=== PATIENT | female | born 1960 | race Caucasian/White ===

== ENCOUNTER 2016-09-11 15:45 | Inpatient (IN) | payer MEDICAID ==
[2016-09-11] VITALS (8 sets, daily range): BP systolic 109–133; RESP 20–24; TEMP 97.5; BMI 16.4
[~2016-09-11] VITALS: Ht 152.4 cm; Wt 38.0 kg
[2016-09-11] MEDS ORDERED: SODIUM CHLORIDE 0.9% 1,000 ML ONE (17:51)
[2016-09-11] MEDS ORDERED: PIPERACIL/TAZO 3.375GM/50ML 50 ML IV ONE (17:55)
[2016-09-11] MEDS ORDERED: SALINE FLUSH 10 ML FLUSH PRN (18:45)
[2016-09-11] MEDS ORDERED: ALU/MAG/SIM 30 ML UDC PO PRN (18:45)
[2016-09-11] MEDS ORDERED: BISACODYL EC 5 MG TAB PO PRN (18:45)
[2016-09-11] MEDS ORDERED: BISACODYL 10 MG SUPP RECTAL PRN (18:45)
[2016-09-11] MEDS: NEB-XOPENEX 0.63 MG/3 ML INH SCH ×2 (19:00→22:52)
[2016-09-11] MEDS: SALINE FLUSH 10 ML FLUSH SCH (21:42)
[2016-09-11] MEDS: ESCITALOPRAM 10 MG TAB PO SCH (21:51)
[2016-09-11] MEDS: CYPROHEPTADINE 4 MG TAB PO SCH (21:51)
[2016-09-11] MEDS: Carvedilol 3.125 MG TAB PO SCH (21:51)
[2016-09-11] MEDS: ALPRAZOLAM 0.25 MG TAB PO SCH (21:51)
[2016-09-12] VITALS (30 sets, daily range): BP systolic 94–137; RESP 15–31; TEMP 97.5–98.6; Ht 152.4 cm; Wt 38.0 kg
[2016-09-12] MEDS: METHYLPRED SOD SUCC 40 MG VIAL IV SCH ×2 (00:24→06:35)
[2016-09-12] MEDS: NEB-XOPENEX 0.63 MG/3 ML INH SCH ×2 (03:19→05:59)
[2016-09-12] MEDS: SODIUM CHLORIDE 0.9% FLUSH BAG 500 ML IV SCH (05:53)
[2016-09-12] MEDS: DUONEB INH SCH ×5 (07:00→23:25)
[2016-09-12] MEDS: SALINE FLUSH 10 ML FLUSH SCH ×2 (07:50→19:58)
[2016-09-12] MEDS: CYPROHEPTADINE 4 MG TAB PO SCH ×3 (09:16→20:01)
[2016-09-12] MEDS: Furosemide 20 MG/2 ML VIAL IV SCH ×2 (09:16→17:42)
[2016-09-12] MEDS: Carvedilol 3.125 MG TAB PO SCH ×2 (09:17→20:01)
[2016-09-12] MEDS: METHYLPRED SOD SUCC 125 MG/2 ML VIAL IV SCH ×3 (09:17→20:01)
[2016-09-12] MEDS: ASPIRIN EC 81 MG TAB PO SCH (09:17)
[2016-09-12] MEDS: ALPRAZOLAM 0.25 MG TAB PO SCH ×2 (09:23→20:01)
[2016-09-12] MEDS: LEVOFLOXACIN 500 MG/100 ML 100 ML IV SCH (09:30)
[2016-09-12] MEDS: ESCITALOPRAM 10 MG TAB PO SCH (20:01)
[2016-09-13] VITALS (26 sets, daily range): BP systolic 88–130; RESP 14–27; TEMP 97.7–98.9
[2016-09-13] MEDS: DUONEB INH SCH ×5 (02:26→16:56)
[2016-09-13] MEDS: SODIUM CHLORIDE 0.9% FLUSH BAG 500 ML IV SCH ×2 (05:48)
[2016-09-13] MEDS: SALINE FLUSH 10 ML FLUSH SCH ×2 (07:30→20:36)
[2016-09-13] MEDS: CYPROHEPTADINE 4 MG TAB PO SCH ×3 (08:09→20:36)
[2016-09-13] MEDS: Carvedilol 3.125 MG TAB PO SCH ×2 (08:09→20:36)
[2016-09-13] MEDS: ASPIRIN EC 81 MG TAB PO SCH (08:09)
[2016-09-13] MEDS: ALPRAZOLAM 0.25 MG TAB PO SCH ×2 (08:09→20:36)
[2016-09-13] MEDS: Furosemide 20 MG/2 ML VIAL IV SCH ×2 (08:10→17:59)
[2016-09-13] MEDS: METHYLPRED SOD SUCC 125 MG/2 ML VIAL IV SCH ×3 (08:10→20:36)
[2016-09-13] MEDS: LEVOFLOXACIN 500 MG/100 ML 100 ML IV SCH (08:56)
[2016-09-13] MEDS: ESCITALOPRAM 10 MG TAB PO SCH (20:36)
[2016-09-14] VITALS (16 sets, daily range): BP systolic 87–125; RESP 13–23; TEMP 97.4–98.9
[2016-09-14] MEDS: DUONEB INH SCH ×7 (00:20→23:21)
[2016-09-14] MEDS: SODIUM CHLORIDE 0.9% FLUSH BAG 500 ML IV SCH ×3 (05:46→19:21)
[2016-09-14] MEDS: METHYLPRED SOD SUCC 125 MG/2 ML VIAL IV SCH ×3 (09:54→20:24)
[2016-09-14] MEDS: LEVOFLOXACIN 500 MG/100 ML 100 ML IV SCH (09:54)
[2016-09-14] MEDS: Furosemide 20 MG/2 ML VIAL IV SCH ×2 (09:54→17:34)
[2016-09-14] MEDS: SALINE FLUSH 10 ML FLUSH SCH ×2 (09:54→20:24)
[2016-09-14] MEDS: ASPIRIN EC 81 MG TAB PO SCH (09:55)
[2016-09-14] MEDS: Carvedilol 3.125 MG TAB PO SCH ×2 (09:55→20:25)
[2016-09-14] MEDS: CYPROHEPTADINE 4 MG TAB PO SCH ×3 (09:55→20:24)
[2016-09-14] MEDS: ALPRAZOLAM 0.25 MG TAB PO SCH ×2 (09:57→20:25)
[2016-09-14] MEDS: ESCITALOPRAM 10 MG TAB PO SCH (20:24)
[2016-09-15] VITALS (9 sets, daily range): BP systolic 103–116; RESP 15–24; TEMP 97.6–98.5
[2016-09-15] MEDS: SODIUM CHLORIDE 0.9% FLUSH BAG 500 ML IV SCH (06:40)
[2016-09-15] MEDS: DUONEB INH SCH ×5 (07:36→23:23)
[2016-09-15] MEDS: LEVOFLOXACIN 500 MG/100 ML 100 ML IV SCH (07:52)
[2016-09-15] MEDS: SALINE FLUSH 10 ML FLUSH SCH ×2 (07:52→20:09)
[2016-09-15] MEDS: Furosemide 20 MG/2 ML VIAL IV SCH ×2 (07:53→17:25)
[2016-09-15] MEDS: CYPROHEPTADINE 4 MG TAB PO SCH ×3 (07:53→20:11)
[2016-09-15] MEDS: METHYLPRED SOD SUCC 125 MG/2 ML VIAL IV SCH ×3 (07:53→20:10)
[2016-09-15] MEDS: ASPIRIN EC 81 MG TAB PO SCH (07:53)
[2016-09-15] MEDS: Carvedilol 3.125 MG TAB PO SCH ×2 (07:53→20:10)
[2016-09-15] MEDS: ALPRAZOLAM 0.25 MG TAB PO SCH ×2 (07:53→20:11)
[2016-09-15] MEDS: ESCITALOPRAM 10 MG TAB PO SCH (20:11)
[2016-09-16] VITALS (7 sets, daily range): BP systolic 99–126; RESP 16–22; TEMP 98.1–98.5
[2016-09-16] MEDS: SODIUM CHLORIDE 0.9% FLUSH BAG 500 ML IV SCH ×2 (05:22)
[2016-09-16] MEDS: DUONEB INH SCH ×5 (08:13→23:32)
[2016-09-16] MEDS: ASPIRIN EC 81 MG TAB PO SCH (08:15)
[2016-09-16] MEDS: Carvedilol 3.125 MG TAB PO SCH ×2 (08:15→20:01)
[2016-09-16] MEDS: ALPRAZOLAM 0.25 MG TAB PO SCH ×2 (08:15→20:01)
[2016-09-16] MEDS: CYPROHEPTADINE 4 MG TAB PO SCH ×3 (08:15→20:01)
[2016-09-16] MEDS: METHYLPRED SOD SUCC 125 MG/2 ML VIAL IV SCH ×3 (08:18→20:01)
[2016-09-16] MEDS: Furosemide 20 MG/2 ML VIAL IV SCH ×2 (08:18→16:18)
[2016-09-16] MEDS: SALINE FLUSH 10 ML FLUSH SCH ×2 (08:20→20:01)
[2016-09-16] MEDS: LEVOFLOXACIN 500 MG/100 ML 100 ML IV SCH (08:21)
[2016-09-16] MEDS: ESCITALOPRAM 10 MG TAB PO SCH (20:00)
[2016-09-17] VITALS (10 sets, daily range): BP systolic 99–120; RESP 16–22; TEMP 97.3–97.8
[2016-09-17] MEDS: DUONEB INH SCH ×5 (05:03→23:28)
[2016-09-17] MEDS: SODIUM CHLORIDE 0.9% FLUSH BAG 500 ML IV SCH ×3 (06:00→19:29)
[2016-09-17] MEDS: Carvedilol 3.125 MG TAB PO SCH ×2 (08:15→20:14)
[2016-09-17] MEDS: Furosemide 20 MG/2 ML VIAL IV SCH (08:15)
[2016-09-17] MEDS: ALPRAZOLAM 0.25 MG TAB PO SCH ×2 (08:15→20:15)
[2016-09-17] MEDS: ASPIRIN EC 81 MG TAB PO SCH (08:15)
[2016-09-17] MEDS: CYPROHEPTADINE 4 MG TAB PO SCH ×3 (08:15→20:14)
[2016-09-17] MEDS: METHYLPRED SOD SUCC 125 MG/2 ML VIAL IV SCH (08:16)
[2016-09-17] MEDS: LEVOFLOXACIN 500 MG/100 ML 100 ML IV SCH (08:16)
[2016-09-17] MEDS: SALINE FLUSH 10 ML FLUSH SCH ×2 (08:17→20:15)
[2016-09-17] MEDS: Furosemide 20 MG TAB PO SCH (17:01)
[2016-09-17] MEDS ORDERED: MISSING DOSE XX ONE (20:00)
[2016-09-17] MEDS: ESCITALOPRAM 10 MG TAB PO SCH (20:14)
[2016-09-18 03:03] VITALS: BP_SYST 91; RESP 20; TEMP 98.5
[2016-09-18] MEDS: DUONEB INH SCH ×5 (06:37→22:12)
[2016-09-18] MEDS: SODIUM CHLORIDE 0.9% FLUSH BAG 500 ML IV SCH ×2 (06:51→19:50)
[2016-09-18 07:04] VITALS: BP_SYST 96; RESP 16; TEMP 97.8
[2016-09-18] MEDS: LEVOFLOXACIN 500 MG/100 ML 100 ML IV SCH (09:18)
[2016-09-18] MEDS: ALPRAZOLAM 0.25 MG TAB PO SCH ×2 (09:18→19:49)
[2016-09-18] MEDS: SALINE FLUSH 10 ML FLUSH SCH ×2 (09:19→19:49)
[2016-09-18] MEDS: PREDNISONE 20 MG TAB PO SCH (09:19)
[2016-09-18] MEDS: Carvedilol 3.125 MG TAB PO SCH ×2 (09:19→19:49)
[2016-09-18] MEDS: ASPIRIN EC 81 MG TAB PO SCH (09:19)
[2016-09-18] MEDS: Furosemide 20 MG TAB PO SCH (09:19)
[2016-09-18] MEDS: CYPROHEPTADINE 4 MG TAB PO SCH ×3 (09:20→19:49)
[2016-09-18 10:48] VITALS: BP_SYST 84; RESP 16; TEMP 98.1
[2016-09-18 14:55] VITALS: BP_SYST 110; RESP 16; TEMP 97.4
[2016-09-18] MEDS: MEGESTROL 800 MG/20 ML UDC PO SCH (16:07)
[2016-09-18 19:23] VITALS: BP_SYST 94; RESP 16; TEMP 98
[2016-09-18] MEDS: ESCITALOPRAM 10 MG TAB PO SCH (19:49)
[2016-09-18 23:14] VITALS: BP_SYST 91; RESP 16; TEMP 97.7
[2016-09-19] VITALS (8 sets, daily range): BP systolic 91–105; RESP 16–24; TEMP 97.5–98
[2016-09-19] MEDS: SODIUM CHLORIDE 0.9% FLUSH BAG 500 ML IV SCH (06:00)
[2016-09-19] MEDS: DUONEB INH SCH ×5 (07:27→23:04)
[2016-09-19] MEDS: Carvedilol 3.125 MG TAB PO SCH ×2 (08:17→20:08)
[2016-09-19] MEDS: ALPRAZOLAM 0.25 MG TAB PO SCH ×2 (08:17→20:08)
[2016-09-19] MEDS: ASPIRIN EC 81 MG TAB PO SCH (08:17)
[2016-09-19] MEDS: SALINE FLUSH 10 ML FLUSH SCH ×2 (08:17→20:08)
[2016-09-19] MEDS: PREDNISONE 20 MG TAB PO SCH (08:18)
[2016-09-19] MEDS: CYPROHEPTADINE 4 MG TAB PO SCH ×3 (08:18→20:08)
[2016-09-19] MEDS: MEGESTROL 800 MG/20 ML UDC PO SCH (08:18)
[2016-09-19] MEDS: ESCITALOPRAM 10 MG TAB PO SCH (20:08)
[2016-09-20] VITALS (11 sets, daily range): BP systolic 100–124; RESP 14–38; TEMP 98–98.4
[2016-09-20] MEDS: DUONEB INH PRN (04:12)
[2016-09-20] MEDS: SODIUM CHLORIDE 0.9% FLUSH BAG 500 ML IV SCH ×2 (05:49→05:54)
[2016-09-20] MEDS: DUONEB INH SCH ×5 (06:18→22:18)
[2016-09-20] MEDS: PREDNISONE 20 MG TAB PO SCH ×2 (08:48→10:43)
[2016-09-20] MEDS: SALINE FLUSH 10 ML FLUSH SCH ×2 (08:48→20:40)
[2016-09-20] MEDS: ALPRAZOLAM 0.25 MG TAB PO SCH ×3 (08:48→20:40)
[2016-09-20] MEDS: Carvedilol 3.125 MG TAB PO SCH ×3 (08:48→20:40)
[2016-09-20] MEDS: CYPROHEPTADINE 4 MG TAB PO SCH ×4 (08:48→20:40)
[2016-09-20] MEDS: ASPIRIN EC 81 MG TAB PO SCH ×2 (08:48→09:00)
[2016-09-20] MEDS: MEGESTROL 800 MG/20 ML UDC PO SCH ×2 (08:48→11:29)
[2016-09-20] MEDS ORDERED: MISSING DOSE XX ONE (10:40)
[2016-09-20] MEDS: MODAFINIL 100 MG TAB PO SCH (12:00)
[2016-09-20] MEDS: ESCITALOPRAM 10 MG TAB PO SCH (20:40)
[2016-09-21] VITALS (28 sets, daily range): BP systolic 83–122; RESP 11–24; TEMP 98–98.6
[2016-09-21] MEDS: DUONEB INH PRN (02:47)
[2016-09-21] MEDS: SODIUM CHLORIDE 0.9% FLUSH BAG 500 ML IV SCH ×2 (05:18→05:19)
[2016-09-21] MEDS: MODAFINIL 100 MG TAB PO SCH ×2 (06:13→12:24)
[2016-09-21] MEDS: DUONEB INH SCH ×5 (06:49→22:23)
[2016-09-21] MEDS: ASPIRIN EC 81 MG TAB PO SCH (08:38)
[2016-09-21] MEDS: Carvedilol 3.125 MG TAB PO SCH ×2 (08:38→21:00)
[2016-09-21] MEDS: PREDNISONE 20 MG TAB PO SCH (08:39)
[2016-09-21] MEDS: CYPROHEPTADINE 4 MG TAB PO SCH ×3 (08:39→21:00)
[2016-09-21] MEDS: MEGESTROL 800 MG/20 ML UDC PO SCH (08:40)
[2016-09-21] MEDS: SALINE FLUSH 10 ML FLUSH SCH ×2 (08:41→21:00)
[2016-09-21] MEDS: ALPRAZOLAM 0.25 MG TAB PO SCH ×2 (12:24→21:00)
[2016-09-21] MEDS: ESCITALOPRAM 10 MG TAB PO SCH (21:00)
[2016-09-22] VITALS (17 sets, daily range): BP systolic 75–107; RESP 13–22; TEMP 98.3–99.5
[2016-09-22] MEDS: DUONEB INH PRN (02:32)
[2016-09-22] MEDS: SODIUM CHLORIDE 0.9% FLUSH BAG 500 ML IV SCH ×4 (05:44→20:00)
[2016-09-22] MEDS: MODAFINIL 100 MG TAB PO SCH ×2 (06:08→13:05)
[2016-09-22] MEDS: DUONEB INH SCH ×5 (07:24→21:50)
[2016-09-22] MEDS: SALINE FLUSH 10 ML FLUSH SCH ×2 (08:42→20:00)
[2016-09-22] MEDS: ASPIRIN EC 81 MG TAB PO SCH (08:43)
[2016-09-22] MEDS: PREDNISONE 20 MG TAB PO SCH (08:43)
[2016-09-22] MEDS: MEGESTROL 800 MG/20 ML UDC PO SCH (08:43)
[2016-09-22] MEDS: Carvedilol 3.125 MG TAB PO SCH ×2 (08:43→21:00)
[2016-09-22] MEDS: CYPROHEPTADINE 4 MG TAB PO SCH ×3 (08:43→22:05)
[2016-09-22] MEDS: ALPRAZOLAM 0.25 MG TAB PO SCH ×2 (08:46→22:05)
[2016-09-22] MEDS: MAG HYDROX 30 ML UDC PO PRN (17:36)
[2016-09-22] MEDS: ESCITALOPRAM 10 MG TAB PO SCH (22:05)
[2016-09-23 02:48] VITALS: BP_SYST 104; RESP 16; TEMP 100.8
[2016-09-23] MEDS: MODAFINIL 100 MG TAB PO SCH ×2 (06:11→13:24)
[2016-09-23] MEDS: DUONEB INH SCH ×5 (06:59→22:59)
[2016-09-23 08:35] VITALS: BP_SYST 108; RESP 20; TEMP 98.7
[2016-09-23] MEDS: Carvedilol 3.125 MG TAB PO SCH ×2 (09:59→20:07)
[2016-09-23] MEDS: SALINE FLUSH 10 ML FLUSH SCH ×2 (09:59→20:04)
[2016-09-23] MEDS: MEGESTROL 800 MG/20 ML UDC PO SCH (10:00)
[2016-09-23] MEDS: ALPRAZOLAM 0.25 MG TAB PO SCH ×2 (10:00→20:07)
[2016-09-23] MEDS: PREDNISONE 20 MG TAB PO SCH (10:00)
[2016-09-23] MEDS: CYPROHEPTADINE 4 MG TAB PO SCH ×3 (10:00→20:07)
[2016-09-23] MEDS: ASPIRIN EC 81 MG TAB PO SCH (10:00)
[2016-09-23 17:32] VITALS: BP_SYST 95; RESP 20; TEMP 98.3
[2016-09-23] MEDS ORDERED: MISSING DOSE XX ONE (19:40)
[2016-09-23 19:50] VITALS: BP_SYST 115; RESP 16; TEMP 99.1
[2016-09-23] MEDS: ESCITALOPRAM 10 MG TAB PO SCH (20:07)
[2016-09-23] MEDS: MAG HYDROX 30 ML UDC PO PRN (20:07)
[2016-09-23 22:51] VITALS: BP_SYST 95; RESP 16; TEMP 99.2
[2016-09-23 23:00] VITALS: RESP 22
[2016-09-24] VITALS (7 sets, daily range): BP systolic 92–119; RESP 16–22; TEMP 97.6–98.9
[2016-09-24] MEDS: SODIUM CHLORIDE 0.9% FLUSH BAG 500 ML IV SCH ×2 (05:52→05:53)
[2016-09-24] MEDS: MODAFINIL 100 MG TAB PO SCH ×2 (06:05→11:03)
[2016-09-24] MEDS: DUONEB INH SCH ×4 (06:50→17:05)
[2016-09-24] MEDS: PREDNISONE 20 MG TAB PO SCH (08:09)
[2016-09-24] MEDS: MEGESTROL 800 MG/20 ML UDC PO SCH (08:09)
[2016-09-24] MEDS: CYPROHEPTADINE 4 MG TAB PO SCH ×2 (08:09→15:43)
[2016-09-24] MEDS: SALINE FLUSH 10 ML FLUSH SCH (08:09)
[2016-09-24] MEDS: Carvedilol 3.125 MG TAB PO SCH (08:09)
[2016-09-24] MEDS: ALPRAZOLAM 0.25 MG TAB PO SCH (08:09)
[2016-09-24] MEDS: ASPIRIN EC 81 MG TAB PO SCH (08:09)
== END 2016-09-24 18:01 | disposition home health service (06) | DRG 189 ==
LOC: ENRESERVDT → ENRESERVTM → ER 15:45 → ENPENDDIS 18:44 → EMR 18:44 → CCU 20:21 → 5THE 09-14 08:07 → ICU 09-20 09:56 → PCU 09-22 15:23
PROVIDERS: ADMIT Internal Medicine; ATTEND Internal Medicine
CPT/HCPCS: 36415; 36600; 71010; 80051; 80053; 81001; 82330; 82553; 82803; 82947; 83605; 83880; 84484; 85025; 86738; 87040; 87071; 87205; 93005; 94640; 94660; 94762; 94799; 96361; 96365; 96375

== ENCOUNTER 2016-10-07 09:05 | Inpatient (IN) | payer MEDICAID ==
[2016-10-07] VITALS (8 sets, daily range): BP systolic 89–114; RESP 20–30; TEMP 97.3–98.1; Ht 157.5 cm; Wt 35.0 kg
[~2016-10-07] VITALS: Ht 157.5 cm; Wt 35.0 kg
[2016-10-07] MEDS ORDERED: METHYLPRED SOD SUCC 125 MG/2 ML VIAL ONE (09:18)
[2016-10-07] MEDS ORDERED: LORAZEPAM 2 MG/ML VIAL ONE (09:19)
[2016-10-07] MEDS ORDERED: SODIUM CHLORIDE 0.9% 1,000 ML ONE (10:10)
[2016-10-07] MEDS ORDERED: PIPER/TAZO 3.375 GM PYXIS ONE (10:44)
[2016-10-07] MEDS ORDERED: SODIUM CHLORIDE 0.9% 250 ML IV ONE (10:45)
[2016-10-07] MEDS: LEVOFLOXACIN 500 MG/100 ML 100 ML IV SCH (13:16)
[2016-10-07] MEDS ORDERED: ACETAMINOPHEN 325 MG TAB PO PRN (13:20)
[2016-10-07] MEDS ORDERED: ONDANSETRON 4 MG VIAL IV PUSH PRN (13:20)
[2016-10-07] MEDS ORDERED: ALPRAZOLAM 0.25 MG TAB PO PRN (13:20)
[2016-10-07] MEDS ORDERED: KCL CR 10 MEQ CAP PO ONE (14:50)
[2016-10-07] MEDS ORDERED: DUONEB INH SCH (15:00)
[2016-10-07] MEDS ORDERED: MISSING DOSE XX ONE (15:25)
[2016-10-07] MEDS: METHYLPRED SOD SUCC 125 MG/2 ML VIAL IV SCH (15:37)
[2016-10-07] MEDS: DUONEB INH SCH ×3 (15:40→22:22)
[2016-10-07] MEDS: NEB-BUDESONIDE 0.5 MG INH SCH (19:50)
[2016-10-07] MEDS: NEB-BROVANA 15 MCG/2 ML INH SCH (19:50)
[2016-10-07] MEDS: clonazePAM 0.5 MG TAB PO SCH (20:27)
[2016-10-07] MEDS: Carvedilol 3.125 MG TAB PO SCH (20:27)
[2016-10-07] MEDS: MEGESTROL ACE 40 MG TAB PO SCH (20:27)
[2016-10-07] MEDS: CYPROHEPTADINE 4 MG TAB PO SCH (20:27)
[2016-10-08] VITALS (10 sets, daily range): BP systolic 91–117; RESP 16–22; TEMP 97.4–97.9
[2016-10-08] MEDS: DUONEB INH SCH ×7 (00:15→22:43)
[2016-10-08] MEDS: METHYLPRED SOD SUCC 125 MG/2 ML VIAL IV SCH ×3 (00:49→17:17)
[2016-10-08] MEDS: NEB-BROVANA 15 MCG/2 ML INH SCH ×2 (06:15→19:12)
[2016-10-08] MEDS: NEB-BUDESONIDE 0.5 MG INH SCH ×2 (06:15→19:12)
[2016-10-08] MEDS: PANTOPRAZOLE 40 MG TAB PO SCH (06:32)
[2016-10-08] MEDS ORDERED: POTASSIUM CHLORIDE PREMIX 50 ML IV SCH (06:35)
[2016-10-08] MEDS: SODIUM CHLORIDE 0.9% FLUSH BAG 500 ML IV SCH (06:58)
[2016-10-08] MEDS ORDERED: DUONEB INH SCH (08:00)
[2016-10-08] MEDS: ROFLUMILAST 500 MCG TAB PO SCH (08:56)
[2016-10-08] MEDS: CYPROHEPTADINE 4 MG TAB PO SCH ×3 (08:56→22:18)
[2016-10-08] MEDS: clonazePAM 0.5 MG TAB PO SCH ×2 (08:56→21:00)
[2016-10-08] MEDS: MEGESTROL ACE 40 MG TAB PO SCH ×4 (08:56→22:18)
[2016-10-08] MEDS: MONTELUKAST 10 MG TAB PO SCH (08:56)
[2016-10-08] MEDS: POTASSIUM CHLORIDE PREMIX 50 ML IV SCH ×4 (08:57→13:41)
[2016-10-08] MEDS: Carvedilol 3.125 MG TAB PO SCH ×2 (08:57→22:18)
[2016-10-08] MEDS: ASPIRIN EC 81 MG TAB PO SCH (08:58)
[2016-10-08] MEDS: LEVOFLOXACIN 500 MG/100 ML 100 ML IV SCH (11:26)
[2016-10-08] MEDS ORDERED: VANCOMYCIN 1,500 MG in SODIUM CHLORIDE 0.9% 250 ML IV ONE (12:30)
[2016-10-09] MEDS: METHYLPRED SOD SUCC 125 MG/2 ML VIAL IV SCH ×2 (00:06→07:29)
[2016-10-09 03:30] VITALS: BP_SYST 102; RESP 20; TEMP 97.6
[2016-10-09] MEDS: SODIUM CHLORIDE 0.9% FLUSH BAG 500 ML IV SCH (06:00)
[2016-10-09] MEDS: PANTOPRAZOLE 40 MG TAB PO SCH (07:00)
[2016-10-09 07:18] VITALS: BP_SYST 131
[2016-10-09 07:19] VITALS: RESP 20; TEMP 97.8
[2016-10-09] MEDS: LEVOFLOXACIN 500 MG/100 ML 100 ML IV SCH (07:29)
[2016-10-09] MEDS: Carvedilol 3.125 MG TAB PO SCH (07:30)
[2016-10-09] MEDS: ROFLUMILAST 500 MCG TAB PO SCH (07:30)
[2016-10-09] MEDS: ASPIRIN EC 81 MG TAB PO SCH (07:30)
[2016-10-09] MEDS: CYPROHEPTADINE 4 MG TAB PO SCH (07:31)
[2016-10-09] MEDS: MEGESTROL ACE 40 MG TAB PO SCH (07:31)
[2016-10-09] MEDS: MONTELUKAST 10 MG TAB PO SCH (07:31)
[2016-10-09 07:33] VITALS: BP_SYST 102; RESP 20; TEMP 97.6
[2016-10-09] MEDS: NEB-BROVANA 15 MCG/2 ML INH SCH (07:45)
[2016-10-09] MEDS: DUONEB INH SCH (07:45)
[2016-10-09] MEDS: NEB-BUDESONIDE 0.5 MG INH SCH (07:45)
== END 2016-10-09 09:44 | disposition hospice, home (50) | DRG 189 ==
LOC: ENRESERVTM → ENRESERVDT → ER 09:05 → ENPENDDIS 10:26 → DELPENDDIS 10:26 → EMR 10:26 → 3NT 12:24
PROVIDERS: ADMIT Internal Medicine Nephrology; ATTEND Internal Medicine Nephrology
DX: J96.20 Acute and chronic respiratory failure, unspecified whether with hypoxia or hypercapnia (principal); E43 Unspecified severe protein-calorie malnutrition; I50.9 Heart failure, unspecified; J44.9 Chronic obstructive pulmonary disease, unspecified; Z66 Do not resuscitate; F41.9 Anxiety disorder, unspecified; Z87.891 Personal history of nicotine dependence; K21.9 Gastro-esophageal reflux disease without esophagitis; E78.00 Pure hypercholesterolemia, unspecified
CPT/HCPCS: 36415; 36600; 71010; 80053; 81003; 82803; 83605; 83880; 85025; 86738; 87040; 87077; 87088; 87278; 87299; 93005; 94640; 94660; 94762; 94799; 96365; 96367; 96368; 96375